=== PATIENT | male | born 1990 | race African-American/Black ===

== ENCOUNTER 2017-08-24 05:48 | Emergency (ER) | payer OTHER ==
[~2017-08-24] VITALS: Ht 165.1 cm; Wt 65.8 kg
[2017-08-24] MEDS ORDERED: TRUVADA 100 MG1 EACH (05:58)
== END 2017-08-24 08:50 | disposition home or self-care (01) ==
LOC: ER 05:48
DX: T18.5XXA Foreign body in anus and rectum, initial encounter (principal); X58.XXXA Exposure to other specified factors, initial encounter; Y93.89 Activity, other specified; Y92.89 Other specified places as the place of occurrence of the external cause; Y99.8 Other external cause status